=== PATIENT | female | born 1950 | race Native Hawaiian/Other Pacific Islander ===

== ENCOUNTER 2017-05-17 07:34 | Outpatient (CLI) | payer OTHER, BC ==
[2017-05-17 08:44] LABS: PLATELET COUNT 258 K/uL (152-353)
== END 2017-05-17 10:00 | disposition home or self-care (01) ==
LOC: MAMMO 07:34
PROVIDERS: Nurse Practitioner
DX: R53.83 Other fatigue (principal); E78.2 Mixed hyperlipidemia; E55.9 Vitamin D deficiency, unspecified; E53.8 Deficiency of other specified B group vitamins; Z12.31 Encounter for screening mammogram for malignant neoplasm of breast
CPT/HCPCS: 36415; 80053; 80061; 82306; 82607; 85027

== ENCOUNTER 2017-06-20 07:45 | Outpatient (CLI) | payer OTHER, BC | END 2017-06-20 19:34 | disposition home or self-care (01) | LOC: LABW 07:45 | DX: E03.8 Other specified hypothyroidism (principal) | CPT/HCPCS: 36415; 84443 ==

== ENCOUNTER 2018-05-31 07:53 | Outpatient (CLI) | payer OTHER, BC ==
[2018-05-31 08:26] LABS: PLATELET COUNT 272 K/uL (152-353)
[2018-05-31 08:44] LABS: POTASSIUM 4.1 mmol/L (3.6-5.2)
== END 2018-05-31 22:46 | disposition home or self-care (01) ==
LOC: LABW 07:53
PROVIDERS: Nurse Practitioner
DX: R53.83 Other fatigue (principal); E53.8 Deficiency of other specified B group vitamins; E03.9 Hypothyroidism, unspecified; E78.00 Pure hypercholesterolemia, unspecified; Z13.1 Encounter for screening for diabetes mellitus
CPT/HCPCS: 36415; 80053; 80061; 82607; 83036; 84443; 85027

== ENCOUNTER 2018-06-15 08:31 | Outpatient (CLI) | payer OTHER, BC | END 2018-06-15 20:28 | disposition home or self-care (01) | LOC: MAMMO 08:31 | DX: Z12.31 Encounter for screening mammogram for malignant neoplasm of breast (principal); Z13.820 Encounter for screening for osteoporosis; Z78.0 Asymptomatic menopausal state ==

== ENCOUNTER 2019-04-10 08:08 | Outpatient (CLI) | payer OTHER, BC ==
[2019-04-10 08:50] LABS: POTASSIUM 4.4 mmol/L (3.6-5.2)
[2019-04-10 10:24] LABS: PLATELET COUNT 280 K/uL (152-353)
== END 2019-04-10 20:48 | disposition home or self-care (01) ==
LOC: LABW 08:08
PROVIDERS: Internal Medicine
DX: E03.8 Other specified hypothyroidism (principal); E78.00 Pure hypercholesterolemia, unspecified; D64.89 Other specified anemias; E55.9 Vitamin D deficiency, unspecified
CPT/HCPCS: 36415; 80053; 80061; 81000; 82306; 84439; 84443; 85027

== ENCOUNTER 2020-04-22 17:58 | Outpatient (CLI) | payer OTHER, BC ==
[2020-04-22 18:44] LABS: PLATELET COUNT 275 K/uL (152-353)
[2020-04-22 19:02] LABS: POTASSIUM 5.2 mmol/L (3.6-5.2)
== END 2020-04-22 18:58 | disposition home or self-care (01) ==
LOC: LAB 17:58
PROVIDERS: ATTEND Internal Medicine
DX: Z00.00 Encounter for general adult medical examination without abnormal findings (principal); Z13.820 Encounter for screening for osteoporosis; Z79.899 Other long term (current) drug therapy
CPT/HCPCS: 80053; 80061; 81000; 82306; 84439; 84443; 85027; 87088

== ENCOUNTER 2021-03-25 14:21 | Outpatient (CLI) | payer BC ==
[2021-03-25 14:30] LABS: PLATELET COUNT 258 K/uL (152-353)
[2021-03-25 14:58] LABS: POTASSIUM 4.6 mmol/L (3.6-5.2)
== END 2021-03-25 20:26 | disposition home or self-care (01) ==
LOC: LAB 14:21
PROVIDERS: ATTEND Internal Medicine
DX: E03.8 Other specified hypothyroidism (principal); Z13.820 Encounter for screening for osteoporosis; E78.2 Mixed hyperlipidemia
CPT/HCPCS: 80053; 80061; 82306; 84439; 84443; 85027

== ENCOUNTER 2021-07-23 17:25 | Outpatient (CLI) | payer BC ==
[2021-07-23 17:52] LABS: PLATELET COUNT 257 K/uL (152-353)
[2021-07-23 18:04] LABS: POTASSIUM 4.5 mmol/L (3.6-5.2)
== END 2021-07-23 20:03 | disposition home or self-care (01) ==
LOC: LAB 17:25
PROVIDERS: ATTEND Internal Medicine
DX: Z00.00 Encounter for general adult medical examination without abnormal findings (principal); Z13.820 Encounter for screening for osteoporosis; Z79.899 Other long term (current) drug therapy
CPT/HCPCS: 80053; 80061; 81000; 82306; 84439; 84443; 85027

== ENCOUNTER 2022-09-20 08:41 | Outpatient (CLI) | payer BC | END 2022-09-20 18:52 | disposition home or self-care (01) | LOC: MAMMO 08:41 | PROVIDERS: ATTEND Internal Medicine | DX: Z12.31 Encounter for screening mammogram for malignant neoplasm of breast (principal) ==